=== PATIENT | female | born 1975 | race Caucasian/White ===

== ENCOUNTER 2025-07-10 01:37 | Day surgery (SDC) | payer OTHER, SELFPAY ==
[2025-07-03 10:35] VITALS: BMI 48.0
[2025-07-10 09:49] VITALS: BP 139/96; PULSE 74; RESP 18; TEMP 36.6; O2SAT 100
[2025-07-10] MEDS: LACTATED RINGERS 1,000 ML 150 ML IV CONT (10:10)
[2025-07-10 10:12] LABS: BEDSIDEPREGUCG Negative (Negative)
--- NOTE | 2025-07-10 10:18 | WPDANESEPPF ---
Anes - Initial Pre Proc Eval Procedure: Operation Date: 07/10/25 11:00 Proposed Procedures p Screening Colonoscopy - Alexsander Gramajo MD Date/Time: 07/10/25 10:18 Surgeon: Alexsander Gramajo MD Pre Op Diagnosis: Screening Patient Data Age: 49 Gender: F Height: 1.6 m Weight: 121.9 kg Last Vital Signs Temp 36.6 C 07/10/25 09:49 Pulse 74 07/10/25 09:49 Resp 18 07/10/25 09:49 BP 139/96 H 07/10/25 09:49 Pulse Ox 100 07/10/25 09:49 O2 Del Method Room Air 07/10/25 09:49 Allergies Allergy/AdvReac Type Severity Reaction Status Date / Time No Known Drug Allergies AdvReac Unknown NA Verified 07/10/25 09:49 Home Medications ?Medication ?Instructions ?Recorded ?Confirmed ?Type atorvastatin 40 mg tablet 40 mg PO DAILY 04/05/24 07/03/25 History hydrochlorothiazide 25 mg tablet 25 mg PO DAILY 04/05/24 07/03/25 History metoprolol tartrate 100 mg tablet 100 mg PO BID 04/05/24 07/03/25 History norethindrone (contraceptive) 0.35 0.35 mg PO DAILY 04/05/24 07/03/25 History mg tablet sodium sul 1.479 gram-potas ch See Rx Instructions PO PER PKG DIR 01/09/25 07/03/25 Rx 0.188 gram-magnes sul 0.225 gram #24 tabs tablet (Sutab) Laboratory Tests 07/10/25 10:00 POC Urine HCG, Qual Negative (Negative) Patient hx anesthesia problems: none Family hx anesthesia problems: none Results Review: All pre-operative results and documents have been reviewed as part of the pre-operative evaluation. [facility], [facility] Past Medical History Medical History (Updated 07/10/25 @ 10:18 by Anmol Reveles DO) Hyperlipidemia On home O2 at night Headache Hypertension Surgical History Surgical History (Updated 04/05/24 @ 11:03 by Jenn Shaw CMA) [place] teeth removed Hx of tonsillectomy Family History Family History Grandparent Lung cancer Dementia Heart disease Mother Hypertension Heart disease Osteoporosis Pulmonary fibrosis Social History Social History Smoking status: Never smoker Alcohol intake: never Substance use: never Living arrangements: with family Spiritual care concerns: No Anes - Eval Final PreProcedure Day of Procedure 07/10/25 10:18 Patient weight: morbidly obese Heart: regular rate and rhythm Lungs: clear to auscultation Airway: Mallampati scale class II Neurological: alert and oriented Last oral intake: >/= 8 hours ASA classification: III Emergent: no Anesthetic plan: proceed Anesthesia type and monitoring: general GIVS and standard monitoring Results Review: All pre-operative results and documents have been reviewed as part of the pre-operative evaluation. Informed Consent: The patient's anesthetic plan and its attendant risks and benefits were discussed with the patient/family/POA. Questions were solicited and answers provided to the satisfaction of the patient/family/POA.
--- NOTE | 2025-07-10 10:44 | PM.IMHP ---
H&P: HPI History of Present Illness Date/Time: 07/10/25 10:44 Chief Complaint: Screening colonoscopy Narrative: This is the patient's first colonoscopy. There are no GI symptoms and there is no family history of colorectal cancer. Review of Systems Review of Systems: All systems reviewed & are unremarkable except as noted in HPI and below PMFSH Past Medical History Medical History (Updated 07/10/25 @ 10:45 by Alexasnder Gramajo MD) Hyperlipidemia On home O2 at night Headache Hypertension Surgical History Surgical History (Updated 04/05/24 @ 11:03 by Jenn Shaw CMA) [place] teeth removed Hx of tonsillectomy Family History Family History Grandparent Lung cancer Dementia Heart disease Mother Hypertension Heart disease Osteoporosis Pulmonary fibrosis Social History Social History Smoking status: Never smoker Alcohol intake: never Substance use: never Living arrangements: with family Spiritual care concerns: No Meds Home Medications and Allergies Home Medications ?Medication ?Instructions ?Recorded ?Confirmed ?Type atorvastatin 40 mg tablet 40 mg PO DAILY 04/05/24 07/03/25 History hydrochlorothiazide 25 mg tablet 25 mg PO DAILY 04/05/24 07/03/25 History metoprolol tartrate 100 mg tablet 100 mg PO BID 04/05/24 07/03/25 History norethindrone (contraceptive) 0.35 0.35 mg PO DAILY 04/05/24 07/03/25 History mg tablet sodium sul 1.479 gram-potas ch See Rx Instructions PO PER PKG DIR 01/09/25 07/03/25 Rx 0.188 gram-magnes sul 0.225 gram #24 tabs tablet (Sutab) Allergies Allergy/AdvReac Type Severity Reaction Status Date / Time No Known Drug Allergies AdvReac Unknown NA Verified 07/10/25 09:49 Vital Signs Vital Signs - 24 hr 07/10/25 09:49 Temperature 98 F Pulse Rate 74 Respiratory Rate 18 Blood Pressure 139/96 H Pulse Oximetry 100 Oxygen Delivery Room Air Exam Const: General: cooperative and healthy appearing Resp: Effort & Inspection: normal respiratory effort and able to speak in complete sentences Auscultation: clear to auscultation bilaterally Cardio: Rate: regular rate Rhythm: regular rhythm GI: Inspection: normal to inspection GI Palp: No No hepatosplenomegaly present Auscultation: normal bowel sounds Rectal Exam: deferred Skin: General skin exam: normal color Psych: Appearance: grossly normal Mental Status: mental status grossly normal Assessment and Plan Assessment and plan (1) Encounter for screening colonoscopy: Code(s): Z12.11 - Encounter for screening for malignant neoplasm of colon Status: Acute Assessment and Plan: The patient is deemed a good candidate for the procedure. Consent signed. Will proceed.
[2025-07-10 11:08] VITALS: BP 109/67; PULSE 74; RESP 19; O2SAT 97
[2025-07-10 11:18] VITALS: BP 128/76; PULSE 68; RESP 16; O2SAT 98
[2025-07-10 11:28] VITALS: BP 133/78; PULSE 71; RESP 18; O2SAT 99
== END 2025-07-10 11:45 | disposition home or self-care (01) ==
PROVIDERS: Anesthesiology; PCP Family Medicine; Referring Provider Nurse Practitioner Family; Visit Provider Internal Medicine Gastroenterology
PROC: 0DJD8ZZ Inspection of Lower Intestinal Tract, Via Natural or Artificial Opening Endoscopic (ICD-10-PCS; CPT 45378; principal; 2025-07-10 11:00)
DX: Z12.11 Encounter for screening for malignant neoplasm of colon (principal); E66.01 Morbid (severe) obesity due to excess calories; Z68.42 Body mass index [BMI] 45.0-49.9, adult
CPT/HCPCS: 45378; J2003; J2704; J7120